=== PATIENT | female | born 1970 | race Caucasian/White ===

== ENCOUNTER 2020-03-25 10:08 | Day surgery (SDC) | payer OTHER | END 2020-03-25 14:20 | disposition home or self-care (01) | LOC: AMB-ENDOS 10:08 | PROVIDERS: ATTEND Surgery | DX: K63.5 Polyp of colon (principal); Z20.828 Contact with and (suspected) exposure to other viral communicable diseases ==

== ENCOUNTER 2020-04-28 06:04 | Day surgery (SDC) | payer OTHER ==
[2020-04-28] MEDS ORDERED: PERCOCET 5-3251 EACH PO (09:35)
[2020-04-28] MEDS ORDERED: KETO10TA2 PO (09:36)
[2020-04-28] MEDS ORDERED: NEURONTIN300 MG PO (09:36)
== END 2020-04-28 13:30 | disposition home or self-care (01) ==
LOC: CIR.AMB 06:04
PROVIDERS: ATTEND Surgery
DX: D12.9 Benign neoplasm of anus and anal canal (principal); K64.4 Residual hemorrhoidal skin tags; Z20.828 Contact with and (suspected) exposure to other viral communicable diseases